=== PATIENT | female | born 1945 | race Caucasian/White ===

== ENCOUNTER → 2025-05-11 16:38 | Outpatient (REF) | payer MEDICARE, OTHER, SELFPAY | LOC: RAD 16:38 | PROVIDERS: ATTENDING PHYSICIAN Physician Assistant; FAMILY PHYSICIAN Family Medicine | DX: I72.9 Aneurysm of unspecified site (principal) | CPT/HCPCS: 70496; Q9967 ==

== ENCOUNTER 2025-06-23 14:09 | Inpatient (IN) | payer MEDICARE, OTHER, SELFPAY ==
[2025-06-23] VITALS (10 sets, daily range): BP systolic 116–164; BP diastolic 85–97; BMI 28.0; BMI 27.8
--- NOTE | 2025-06-23 11:10 | ED.CVA ---
History of Present Illness
General
Chief Complaint: CVA/TIA Symptoms
Time Seen by Provider: 06/23/25 11:01
Onset of Stroke Symptoms
Onset of symptoms known: Yes
Date of onset of symptoms: 06/19/25
History of Present Illness
History of Present Illness:
Patient is a 79-year-old woman with history of carotid aneurysm with stenting, hypertension, hyperlipidemia presenting to the emergency department with weakness. Per patient's and patient's son 4 days ago patient developed right-sided facial droop
right-sided weakness ataxia slurred speech and word finding difficulty. No prior history of stroke. No chest pain. No back pain. No numbness tingling. No falls.
Phy Exam
Physical Exam
Physical Exam:
GENERAL: in no acute distress
HEENT: normocephalic, extraocular movements intact, moist oral mucosa
NECK: normal inspection
RESPIRATORY: no respiratory distress, clear to auscultation bilaterally
CARDIOVASCULAR: regular rate and rhythm
ABDOMEN/: soft, non-distended, non-tender to palpation, no rebound or guarding
EXTREMITIES: non-tender, no edema/swelling
NEUROLOGIC: Right facial droop, aphasia dysarthria, right upper extremity drift, borheo-cq-koku on right side difficult secondary to weakness but yjzt-az-rnts on right side normal, normal sensation
SKIN: warm
Scores
NIH Stroke Score
Level of Consciousness: 0 - Alert
LOC Questions: 0-Answers both correctly
LOC Commands: 0-Performs both correctly
Best Horizontal Gaze: 0-Normal
Visual Spivey: 0=Normal, no visual loss
Facial Palsy: 1=Minor paralysis
Motor - Right Arm: 1=Drift < 10 seconds
Motor - Left Arm: 0=No drift 10 seconds
Motor - Right Le-No drift 5 seconds
Motor - Left Le-No drift 5 seconds
Limb Ataxia: 0-Absent
Sensation: 0-Normal
Best Language: 1-Mild aphasia
Dysarthria: 1-Mild slurring
Extinction and Inattention: 0-No abnormality
NIH Total Score:: 4
Course
Orders/Labs/Results
Orders:
Orders
06/23/25 11:10
Electrocardiogram (*1) Urgent
Reason for Study: TIA/Stroke
CT Head W/o Iv Contrast Urgent
Comment:
Reason For Exam: right sided weakness
EKG- Treatment ONCE
06/23/25 11:20
Basic Metabolic Panel Urgent
Complete Blood Count/With Diff Urgent
Abnormal Lab Results
06/23/25
11:20
MCHC 32.4 L g/dL
(33.0-37.0)
Monocytes % 10.3 H %
(1.7-9.3)
BUN 23 H mg/dl
(7-17)
Glucose 102 H mg/dl
(70-99)
06/23/25 11:20
06/23/25 11:20
Vital Signs
Initial and Last Documented VS:
Initial Vital Signs
Temp Pulse Resp BP Pulse Ox
98.9 F 79 16 162/91 99
06/23/25 10:18 06/23/25 10:18 06/23/25 10:18 06/23/25 10:18 06/23/25 10:18
Last Documented Vital Signs
Temp Pulse Resp BP Pulse Ox
98.9 F 79 16 162/91 99
06/23/25 10:18 06/23/25 10:18 06/23/25 10:18 06/23/25 10:18 06/23/25 11:12
MDM/Problems Addressed
Differential Diagnosis Includes:
Patient is a 79-year-old woman presenting to the emergency department with weakness facial droop slurred speech ataxia for the past 4 days. On arrival vitals are notable for hypertension and exam does show right-sided facial droop right arm
weakness, dysarthria mild dysphagia. She does have difficulty with gjmtst-hi-vjbw but likely secondary to weakness as uksc-zc-izla is normal. Concern for CVA. Will check blood work EKG and CT scan. Unfortunately patient is out of the window.
Patient will need admission for further evaluation.
*Pulse Oximetry
SaO2: 99
Oxygen Mode of Delivery: Room air
Patient hypoxic: no
*Critical Care Note
Total Time (30-74mins, 75-104mins- exclusive of procedures): Not Applicable
Update Note
Update Note:
Blood work is otherwise reassuring. CT scan per my interpretation with no obvious hemorrhage or large area of ischemia. Per the official read no acute abnormality. Patient will need admission. Discussed with hospitalist who accepted patient to
their service.
ED Attending Note
-
Portions of this chart may have been created with voice recognition software.� Occasional wrong word or��sound alike� substitutions may have occurred due to the inherent limitations of voice recognition software.
Discharge Plan
Departure
Patient Disposition: Admit
Date of Disposition: 06/23/25
Time of Disposition: 12:32
Presentation/result/management discussed w/ accepting MD/DO: Hospitalist
Discharge Problem:
Right sided weakness
Interventions
Interventions:
*Risk Screen - Suicide Last Done: 06/23/25 10:25
*General Assessment Last Done: 06/23/25 10:25
Discharge Date and Time
Print Language: MOZAMBICAN
[2025-06-23 11:27] LABS: Hematocrit 38.0 % (37.0-47.0); Hemoglobin 12.3 g/dL (12.0-16.0); Mean Corp Hgb Conc. 32.4 g/dL (33.0-37.0); Mean Corpuscular Volume 89.2 fL (81.0-99.0); Nucleated Red Blood Cells % 0 %; Platelet Count 281 10^3/uL (130-400); Red Cell Dist. Width 13.9 % (11.5-14.5)
[2025-06-23 11:54] LABS: Blood Urea Nitrogen 23 mg/dl (7-17); Calcium 9.5 mg/dl (8.4-10.2); Carbon Dioxide 27 mmol/L (22-30); Chloride 106 mmol/L (98-107); Glucose 102 mg/dl (70-99); Potassium 4.4 mmol/L (3.5-5.1); Sodium 139 mmol/L (135-145); eGFR > 60.00
--- NOTE | 2025-06-23 12:53 | HPS.HSE ---
Addendum entered and electronically signed by Marlen Nash MD, Resident 06/24/25 07:39:
correction
#Essential hypertension
Hypertensive at admission
Maintain goal normotension( symptoms started 4 days ago)
Continue home antihypertensives.
Original Note:
Family Physician
-
Family Physician:
Chief Complaint
-
.
History of Present Illness
79-year-old dzcie-fath-qyezfxfq female with history of carotid aneurysm left side s/p stenting, hypertension, hyperlipidemia presenting to the emergency department with weakness. Patient son at bedside. 4 days ago patient developed right-sided
facial droop, right-sided weakness, gait instability, slurred speech and word finding difficulty. No prior history of stroke. No syncopal episode, patient denies chest pain, SOB, back pain, headaches, lightheadedness/dizziness, bladder/bowel
disturbances, trauma/falls. Patient's son states that he recognized her speech to be very coarse, and she appeared mentally foggy.
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
ED course�labs unremarkable. EKG�sinus arrhythmia with PVCs.
CTA 05/11/2025� There is a fluid diverting stent within the left cavernous/paraclinoid ICA which appears patent. There is a adjacent medially thrombosed aneurysm sac measuring 2.1 cm. There is mild narrowing within the M1 segment of the left middle
cerebral artery.
CT head 06/23/2025�no acute intracranial abnormality. Redemonstration of stent within the LEFT cavernous ICA with adjacent saccular aneurysm which was thrombosed on the prior study and currently appears unchanged.
Medical History
Past Medical History
Past Medical History: Reports Other ( carotid aneurysm left side s/p stenting, hypertension, hyperlipidemia )
Past Surgical History: Reports Other (Pituitary tumor resection, carotid aneurysm s/p stent)
Social History
Tobacco: Non-smoker
Alcohol: None
Drug: None
Personal:
Living: With Family
Employment: Retired
Family History
Family History: Not pertinent
Allergies / Home Medications
Allergies reflects when Allergies were last updated in [facility].
Home Medications with original date entered in [facility]
Allergy/Medication List:
Allergies
Allergy/AdvReac Type Severity Reaction Status Date / Time
ampicillin Allergy Pharmacy Verified 06/23/25 10:25
to Review
Sulfa (Sulfonamide Allergy Pharmacy Verified 06/23/25 10:25
Antibiotics) to Review
Home Medications
amlodipine 5 mg tablet (Norvasc) 5 mg PO BID Blood Pressure 06/23/25
aspirin 325 mg tablet 325 mg PO DAILY 06/23/25
atorvastatin 10 mg tablet (Lipitor) 10 mg PO DAILY High Cholesterol 06/23/25
clopidogrel 75 mg tablet (Plavix) 75 mg PO DAILY Blood Clot Prevention/Tx 06/23/25
levothyroxine 25 mcg tablet (Synthroid) 25 mcg PO DAILY Thyroid 06/23/25
therapeutic multivitamin 1 tab PO DAILY Supplement 06/23/25
valsartan 80 mg tablet 80 mg PO BID Heart Disease/Condition 06/23/25
Review of Systems
-
A 12 point ROS was completed and negative except as noted: Yes
Physical Exam
Vital Signs
Vital Signs
Temp Pulse Resp BP Pulse Ox
98.9 F 79 16 162/91 99
06/23/25 10:18 06/23/25 10:18 06/23/25 10:18 06/23/25 10:18 06/23/25 11:12
Physical Exam
General: No Apparent Distress and Conversant
HEENT: NormoCephalic and Atraumatic
Respiratory: Clear
Cardiac: S1/S2 and Irregular Rhythm
GI: Soft, Non Tender, Non Distended and Normal Bowel Sounds
Skin: Warm and Dry
Neuro: Awake, Alert, Oriented, AO x 3, Slurred Speech, Facial Droop (Right-sided) and Other (Right lower extremity-strength 4/5, sensations, tone, reflexes intact. Right upper extremity-strength 5/5. Pronator drift +)
Psych: Calm
Laboratory Results
-
06/23/25 11:20
06/23/25 11:20
Impression/Plan
-
IMPRESSION:
79-year-old efumj-fstw-ivxrwnyt female with history of carotid aneurysm left side s/p stenting, hypertension, hyperlipidemia presenting to the emergency department with right facial droop, slurred speech, right lower extremity weakness.
PLAN:
#Right facial droop, right lower extremity weakness
Likely due to CVA�stroke
EKG�sinus arrhythmia with PVCs
CT head with no acute abnormalities
CTA�05/11/2024T Brain: No acute intracranial process. There are erosive changes within the clivus which extend beyond the espinosa of the aneurysm sac. There is likely opacification of the left sphenoid sinus. No underlying lesion is possible.
Recommend correlation with prior imaging if available. If none are available direct visualization or MRI should be considered for further evaluation.
There is a fluid diverting stent within the left cavernous/paraclinoid ICA which appears patent. There is a adjacent medially directed likely thrombosed aneurysm sac measuring 2.1 cm. There is mild narrowing within the M1 segment of the left middle
cerebral artery.
Neurology consulted
Will check CT angiogram
Check MRI brain
Continue aspirin, clopidogrel, statin
Will start high intensity statin, atorvastatin 80 mg (patient has been taking 10 mg atorvastatin)
Check HbA1c, lipid panel
Admit to telemetry
PT/OT evaluation
Speech evaluation
#Essential hypertension
Patient's blood pressure was elevated at admission
Maintain permissive hypertension
Will hold off on antihypertensives for today
#Hyperlipidemia
Start atorvastatin 80 mg
#Carotid artery aneurysm s/p stents
Continue aspirin, clopidogrel, atorvastatin
#Hypothyroidism
Continue levothyroxine
DVT prophylaxis�SCDs for now
Diet�pending speech/swallow eval
Full code
--- NOTE | 2025-06-23 14:21 | CON.NEURO4 ---
Addendum entered and electronically signed by Raghavendra Butler MD 06/23/25 16:56:
Studies reviewed.
I have personally examined the patient. I reviewed and agree with the SCRATCH BRUSHER's Note.
My addenda:
Awake, alert, interactive. No acute distress.
Speech intact.
Follows 2-step requests w/ mild difficulty. No tremor.
Extra-ocular movements grossly intact.
Facial movements full and symmetric. Hearing intact to normal conversational volume.
Normal UE movements bilaterally.
Neck: full ROM.
Chest: no dyspnea
Heart: no JVD
Ext: (-) Clubbing, (-) Cyanosis, (-) Edema
IMPRESSIONS/RECOMMENDATIONS:
Abrupt onset of right sided weakness
Beginning 4 days prior to presentation with waxing waning issue and left internal carotid clinoid artery stenting performed in March 2025
Differential diagnosis includes acute ischemic stroke, aneurysmal rupture despite use of stenting, seizures which is least likely based on the patient's current symptoms without significant cognitive change
Check CTA head and neck
Check efficacy of aspirin and clopidogrel by means of P2Y12 assay
Check MRI of brain
Provide medical educational materials
LDL greater than 70, therefore advance atorvastatin dosing from 10 mg to 40 mg to reduce risk of acute ischemic stroke
Rehabilitation evaluations and treatment
Goal of normotension
Goal of normoglycemia
Consider checking prolactin level
D/W patient / family / nursing
All questions answered.
Will continue to follow patient.
Original Note:
Documented by User: Eri Patel NP 06/23/25 15:43
Consultation - Neurology 4
-
CONSULTING PHYSICIAN: Raghavendra Butler MD
REFERRING PHYSICIAN: Hospitalists/Dr. Nash
DICTATED BY: LLOYD Simpson
DATE/TIME OF REQUEST: 06/23/25
DATE/TIME OF CONSULTATION: 06/23/25
Reason for Consultation: Right-sided weakness
History of Present Illness:
This is a 79-year-old female who has presented to the hospital with report of right-sided weakness. She initially presented to [facility] on Patient reports that four days ago on 06/19/25 her right side started to feel weak, right leg more so than her
right arm. Her family also notes that her speech was mildly slurred and she was having word finding difficulty. This seemed to improve, but didn't entirely resolve. Over the next several days, symptoms progressed. Two days ago on 06/21/25 she started
needing some assistance ambulating, this progressed to needed extensive help today to ambulate to the bathroom. On arrival in the ER, CT head was obtained and is negative for any acute abnormalities. Patient denies any headache, dizziness,
swallowing difficulty, and numbness. She is taking aspirin 325mg and clopidogrel 75mg s/p aneurysm stenting and denies missing any doses.
Past Medical History: L cavernous/paraclinoid ICA aneurysm s/p stent x3 by Dr. Mayogra at [facility] 03/2025, pituitary tumor s/p resection complicated by CSF leak/bacterial meningitis, low vision left eye, headaches, HTN, HLD, hypothyroidism
Surgical History: L cavernous/paraclinoid ICA aneurysm s/p stent x3, pituitary tumor resection 2008
Family History: Reviewed and noncontributory.
Social History: Denies tobacco, alcohol, and illicit drug use.
Allergies: Ampicillin, sulfa.
Home Medications: See below.
Review of Symptoms:
Patient denies any fever, headache, chest pain, shortness of breath, GI or symptoms.
�Per the HPI.�All systems are reviewed negative except above.
Physical Exam:
The patient is afebrile, abdomen is nondistended, breathing is unlabored, skin is warm and dry, no edema.
NIH Stroke Scale:
I performed the NIH stroke scale on the patient on 06/23/25 at 1420. The patient scored 3 points on the NIH stroke scale assessment, which were assigned as follows: See below.
Neurologic Examination:
The patient is awake, alert and oriented x 3. She is able to follow commands and answer questions appropriately. There is mild aphasia. No noticeable dysarthria currently. On cranial nerve assessment, pupils are 3 mm bilateral, round and reactive
to light and accommodation. Visual spivey are full. Extraocular movements are intact. Facial sensations are intact and bilaterally symmetrical, there is no facial asymmetry. Hearing is intact bilaterally to normal conversation volume. Tongue palate
and uvula are midline. Motor strengths are 5/5 left upper and lower extremities, adn 4+/5 right upper and lower extremities on medical research [place] scale. There is drift in the RUE and RLE. No involuntary movement noted. Deep tendon reflexes
are 2+ bilateral upper and lower extremities and Babinski is absent bilaterally. There was no extinction noted on double simultaneous stimulation. Coordination is intact by finger to nose bilaterally.
Lab Results: See below.
Neuro Imaging:
1. CT Head 06/23/25: No acute intracranial abnormality. Redemonstration of stent within the LEFT cavernous ICA with adjacent saccular aneurysm which was thrombosed on the prior study and currently appears unchanged.
Differentials for the patient's presentation include:
1. Right-sided weakness, aphasia, and dysarthria starting 4 days ago. Concern for a vascular issue with recently stented L ICA aneurysm possibly producing ischemic stroke symptoms.
2. History of pituitary tumor s/p resection 2008 complicated by CSF leak/bacterial meningitis.
Patient has the following risk factors for their symptoms: L ICA aneurysm s/p 3 stents 03/2025
IV Tenecteplase/IAT candidacy: Not a candidate due to symptom onset 4 days ago.
Recommendations:
-STAT CTA head/neck, may need urgent consultation with [facility] if there is any concern that there is a malfunction of L ICA aneurysm stents.
-NIHSS and neurological checks per unit guidelines.
-Continue aspirin 325mg and clopidogrel 75mg daily.
-MRI brain noncontrast eventually.
-Goal normotension as symptom onset was 4 days ago.
-Provide patient/family with a stroke education packet.
-LDL goal <70. Lipid panel is pending.
-Goal normoglycemia, hbA1c is pending.
-PT/OT/ST evaluations.
-DVT prophylaxis.
Discussed patient care with: Dr. Butler, the patient, patient's son
Vital Signs and Labs
-
Vital Signs and Labs:
Vital Signs
Temp Pulse Resp BP Pulse Ox
98.9 F 78 19 131/93 96
06/23/25 10:18 06/23/25 13:15 06/23/25 13:15 06/23/25 13:00 06/23/25 13:15
Lab Results
06/23/25 11:20
06/23/25 11:20
Sodium 139 mmol/L (135-145) 06/23/25 11:20
Potassium 4.4 mmol/L (3.5-5.1) 06/23/25 11:20
BUN 23 mg/dl (7-17) H 06/23/25 11:20
Glucose 102 mg/dl (70-99) H 06/23/25 11:20
Calcium 9.5 mg/dl (8.4-10.2) 06/23/25 11:20
Medications
-
Active Medications
Generic Name Dose Route Start Last Admin
Trade Name Freq PRN Reason Stop Dose Admin
Sodium Chloride 1,000 mls @ 80 mls/hr 06/23/25 14:12
Nss IV 06/24/25 02:41
DIRECTED ONE
Home Medications
�Medication �Instructions �Recorded
amlodipine 5 mg tablet (Norvasc) 5 mg PO BID Blood Pressure 06/23/25
aspirin 325 mg tablet 325 mg PO DAILY 06/23/25
atorvastatin 10 mg tablet (Lipitor) 10 mg PO DAILY High Cholesterol 06/23/25
clopidogrel 75 mg tablet (Plavix) 75 mg PO DAILY Blood Clot 06/23/25
Prevention/Tx
levothyroxine 25 mcg tablet 25 mcg PO DAILY Thyroid 06/23/25
(Synthroid)
therapeutic multivitamin 1 tab PO DAILY Supplement 06/23/25
valsartan 80 mg tablet 80 mg PO BID Heart 06/23/25
Disease/Condition
NIH Stroke Score
Subsequent NIH Scale
Date of Subsequent NIH Scale: 06/23/25
Time of Subsequent NIH Scale: 14:20
NIH Stroke Score
Level of Consciousness: 0 - Alert
LOC Questions: 0-Answers both correctly
LOC Commands: 0-Performs both correctly
Best Horizontal Gaze: 0-Normal
Visual Spivey: 0=Normal, no visual loss
Facial Palsy: 0=Normal, symmetrical
Motor - Right Arm: 1=Drift < 10 seconds
Motor - Left Arm: 0=No drift 10 seconds
Motor - Right Le-Drift < 5 seconds
Motor - Left Le-No drift 5 seconds
Limb Ataxia: 0-Absent
Sensation: 0-Normal
Best Language: 1-Mild aphasia
Dysarthria: 0-Normal
Extinction and Inattention: 0-No abnormality
NIH Total Score:: 3
Modified [place] (mRS) Score
Modified [place] Scale (mRS): Moderately severe disability. Unable to attend to bodily needs/walk.
Score: 4
Alteplase Contraindication
Inclusion and Exclusion criteria reviewed: Yes
Reasons for NON-Tx with Thrombolytics ABSOLUTE Exclusions: Greater than 4.5 hrs from onset of sxs

Documented by User: Raghavendra Butler MD 06/23/25 16:49
NIH Stroke Score
NIH Stroke Score
NIH Total Score:: 3
Modified [place] (mRS) Score
Score: 4
--- NOTE | 2025-06-23 15:02 | W.PN.UPDATE ---
Update Note
Progress Note Update
Discussed plan with resident.
HPI: 79-year-old female, with past medical history of carotid aneurysm status post stents x 3 in February 2025, hypertension, hyperlipidemia, who presented with right arm weakness, and likely had dysarthria/expressive aphasia.
Symptoms started about 4 days prior to admission.
A/P:
# Mild Right facial droop, right arm weakness, imbalance, possible dysarthria/ mild expressive aphasia
Admission CT head unrevealing.
Check MRI brain, CT head and neck angio
Check LDL and A1c as part of stroke workup
Neuro consult
Speech eval
PT OT eval
# Carotid aneurysm s/p stents
Continue aspirin, clopidogrel, atorvastatin
# Essential hypertension
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
# Hyperlipidemia
SPLIT AND [employer]UM RO[employer] SUPERVISOR atorvastatin increased from 10 to 80 mg by neuro
# Hypothyroidism
Continue levothyroxine
DVT prophylaxis� Lovenox SQ
Full code
[2025-06-23 16:25] LABS: HDL Cholesterol 86 mg/dl; LDL Cholesterol, Calculated 95 mg/dl; Very Low Density Lipoprotein 12 mg/dl (0-30)
[2025-06-23] MEDS: NSS 1000 IV (17:44)
[2025-06-23] MEDS: LIPITOR 80 MG PO (17:47)
[2025-06-23] MEDS: LOVENOX 40 MG SC (17:47)
[2025-06-23 19:15] LABS: Ferritin 38.6 ng/ml (11.1-264.0)
[2025-06-23 19:47] LABS: Folate > 20.0 ng/ml (2.76-20); Vitamin B12 685 pg/ml (239-931)
[2025-06-23] MEDS: NORVASC 5 MG PO (22:19)
[2025-06-23] MEDS: DIOVAN 80 MG PO (22:20)
[2025-06-24] VITALS (9 sets, daily range): BP systolic 130–170; BP diastolic 67–100; PULSE 85–86; O2SAT 95–96
[2025-06-24 01:09] LABS: C-Reactive Protein < 5.00 mg/L (0.0-10.00)
[2025-06-24] MEDS: SYNTHROID 25 MCG PO (06:29)
[2025-06-24 08:15] LABS: Hematocrit 36.0 % (37.0-47.0); Hemoglobin 11.8 g/dL (12.0-16.0); Mean Corp Hgb Conc. 32.8 g/dL (33.0-37.0); Mean Corpuscular Volume 88.0 fL (81.0-99.0); Nucleated Red Blood Cells % 0 %; Platelet Count 291 10^3/uL (130-400); Red Cell Dist. Width 13.9 % (11.5-14.5)
[2025-06-24 08:31] LABS: ALT (SGPT) 24 U/L (0-35); AST (SGOT) 27 U/L (14-36); Albumin 3.6 g/dl (3.5-5.0); Alkaline Phosphatase 68 U/L (38-126); Blood Urea Nitrogen 20 mg/dl (7-17); Calcium 9.1 mg/dl (8.4-10.2); Carbon Dioxide 24 mmol/L (22-30); Chloride 108 mmol/L (98-107); Estimated Creatinine Clearance 52 ml/min; Glucose 101 mg/dl (70-99); HDL Cholesterol 69 mg/dl; LDL Cholesterol, Calculated 90 mg/dl; Potassium 4.2 mmol/L (3.5-5.1); Sodium 138 mmol/L (135-145); Total Protein 5.8 g/dl (6.3-8.2); Very Low Density Lipoprotein 19 mg/dl (0-30); eGFR > 60.00
[2025-06-24 08:32] LABS: Vitamin D, 25-OH*** 49.3 ng/mL (30-80)
[2025-06-24] MEDS: ASPIRIN 325 MG PO (08:34)
[2025-06-24] MEDS: DIOVAN 80 MG PO ×2 (08:34→22:06)
[2025-06-24] MEDS: PLAVIX 75 MG PO (08:34)
[2025-06-24] MEDS: NORVASC 5 MG PO ×2 (08:34→22:09)
[2025-06-24] MEDS: THERAGRAN 1 TABLET PO (08:34)
[2025-06-24 09:22] LABS: Folate > 20.0 ng/ml (2.76-20); Vitamin B12 730 pg/ml (239-931)
[2025-06-24 09:39] LABS: Glycohemoglobin (HgbA1c) 6.3 % (4.0-5.9)
--- NOTE | 2025-06-24 09:53 | W.PN.NEURO.1 ---
Today's Communication / Plan
-
plan communicated to primary team via TT
Neuro Assessment/Plan
Assessment
# concern for left sided stroke
mechanism unclear at this time, embolic from stent possible, but has not missed dose of plavix and aspirin. consider change to brillinta from plavix if possible if stroke is confirmed. Carbioembolic is possible but EKG didn't show afib. less likely
atheroembolic due to little atherosclerosis.
Plan
- blood pressure goal: Normotension due to LKN 4-5 days ago
- MRI brain w/o contrast
- q 4 hour neuro checks
- continue home aspirin 325mg daily + plavix 75mg daily
- increase atorvastatin to 80mg qhs
- LDL and HgA1c done
- TTE
- other stroke labs: NT-proBNP, d-dimer, ESR, troponin
- consult PT/OT and PM&R if appropriate
Subjective/Objective
Subjective Data
Date of Service: June 24, 2025
Reports improvement in her right sided weakness but not at baseline.
Objective Data
Vital Signs
Temp Pulse Resp BP Pulse Ox
36.5 C 74 17 137/92 97
06/24/25 07:19 06/24/25 07:19 06/24/25 07:19 06/24/25 07:19 06/24/25 07:19
Lab Results
06/24/25 07:08
06/24/25 07:08
Sodium 138 mmol/L (135-145) 06/24/25 07:08
Potassium 4.2 mmol/L (3.5-5.1) 06/24/25 07:08
BUN 20 mg/dl (7-17) H 06/24/25 07:08
Glucose 101 mg/dl (70-99) H 06/24/25 07:08
Calcium 9.1 mg/dl (8.4-10.2) 06/24/25 07:08
LDL Cholesterol, Calc 90 mg/dl 06/24/25 07:08
Vitamin B12 730 pg/ml (426-931) 06/24/25 07:08
Patient Allergies
ampicillin Allergy (Verified 06/23/25 16:58)
Unknown
Sulfa (Sulfonamide Antibiotics) Allergy (Verified 06/23/25 16:58)
Unknown
LDL Level: Statin dose adjusted
Review of Systems
-
History Source: Patient
All other systems: Reviewed and negative
Physical Exam
-
General: Well Developed, Well Nourished and No Apparent Distress
Eyes: Unremarkable
HEENT: Normocephalic and Atraumatic
Skin: Unremarkable
Extremities: No Clubbing
Psych: Unremarkable
Extended Neurological Exam
Mood & Affect: Mood Unremarkable
Attention Span & Concentration: Awake, Alert and Interactive
Memory: Able to Recall (2/3 on delayed recall)
Tremor: Hand Tremor Absent
Involuntary Movement: None
Speech: Quality Unremarkable, Quantity Unremarkable and Rate of Production Unremarkable
Cranial Nerve II: Left Eye: Pupillary Reactivity Unremarkable
Cranial Nerve II: Right Eye: Pupillary Reactivity Unremarkable
Cranial Nerves III, IV, : Extraocular Movement: Extraocular Movement Full in all Directions
Cranial Nerve V: Facial Sensation: Intact to Light Touch
Cranial Nerve VII: Facial Symmetry: Reduced (mild Right nasolabial fold flattening)
Cranial Nerve VIII: Hearing: Unremarkable Hearing to Normal Conversational Volume
Cranial Nerves IX, X: Palate Movement: Palate Elevation Symmetric
Cranial Nerve XI: Shoulder Shrug: Unremarkable
Cranial Nerve XII: Tongue Protusion: Midline
Muscle Strength, Overall: Reduced on Right (4/5 on RUE and RLE)
Muscle Bulk & Tone: Bulk Unremarkable and Tone Unremarkable
Pronator Drift: Drift in Right Upper Extremity and Drift in Right Lower Extremity
Deep Tendon Reflexes: Unremarkable Throughout
Touch Sensation: Unremarkable
Coordination: Ilvtmg-kbqc-ommxey Testing Unremarkable
Gait & Station: Unable to Assess (R sided weakness)
Data Reviewed
-
CT-A: Image Reviewed (No LVO, no acute hemorrhage, stent in left ICA patent, )
--- NOTE | 2025-06-24 10:11 | PTOTSP ---
Speech Therapy Evaluation
Pt is at an increased risk of aspiration given concerns for TIA/CVA. With PO intake, pt demo adequate oral acceptance, mastication, ap transfer, and oral clearance. No residue in right buccal cavity, despite mild right sided weakness. No overt s/sx
of aspiration. Cannot rule out silent aspiration at bedside. Pt afebrile, on room air, and WBC WFL.
Recommend:
1. IDDSI 7 Regular solids, IDDSI 0 thin liquids
2. Medication as best tolerated
3. Standard aspiration precautions
4. SIDEROGRAPHER to follow for speech-language assessment (if warranted) and to monitor diet tolerance
--- NOTE | 2025-06-24 13:04 | CM ---
Patient seen at bedside with son Dominik & grand-daughter Silvia
IA completed
MRI today
CM consult stroke/tia/dc planning completed
Patient lives with 2 story home, in in-law suite, 2 DRU, flight stairs for bedroom, full handicapped bath on 1st floor
PLOF: independent, no assistive device used
DME: Walker, commode, wheelchair
PT/OT rec [facility]UTE [facility] acute rehab entered in [facility]
tt hospitalist for PM&R consult
no pre-auth
PCP: Judie Branch
Pharmacy: [address]
PLAN: Acute Rehab, pending bed availability, when stable
--- NOTE | 2025-06-24 13:59 | W.PN.HOSP.TC ---
Today's Communication/Plan
-
MRI pending
Goal normotension
Assessment / Plan
Assessment / Plan
79 F with carotid aneurysm s/p stent x 3 in February 2025, HTN, HLD, p/w right arm weakness, dysarthria/expressive aphasia.
Suspected acute stroke
Symptoms started 4 days prior to arrival
CT head no acute intracranial abnormality
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
MRI brain�pending
LDL 90�continue statin
A1c 6.3%�SSI/Accu-Cheks for now
ESR 3, TSH 2.9. D-dimer and troponin are pending
Echo pending
Neuro consulted appreciate recs
Speech eval�cleared for diet
PT OT recommend acute rehab. PM&R consult placed
Carotid aneurysm s/p stents
Continue aspirin, clopidogrel, atorvastatin
HTN
Goal normotension, patient already 4 days out from symptoms
Continue amlodipine and valsartan, adjust as needed for BP control
HLD
atorvastatin increased from 10 to 80 mg by neuro
Hypothyroidism
Continue levothyroxine
DVT prophylaxis� Lovenox SQ
Full code
Anticipated Discharge: 24 - 48 hours
Subjective/Interval History
-
Date of Service: June 24, 2025
Patient states her right arm weakness is about the same, but feels her speech is mostly improved. She notes blurred vision in both eyes for several weeks, previously only had in the left eye when she had was having issues with her aneurysm. Denies
any other issues, no difficulty swallowing, no CP/SOB/N/V/abdominal pain/F/C.
Son at bedside and family on the phone on speaker
Objective Data
-
Labs:
Laboratory Results
06/24/25
07:08
WBC 5.7
Hgb 11.8 L
Hct 36.0 L
Plt Count 291
Sodium 138
Potassium 4.2
Chloride 108 H
Carbon Dioxide 24
BUN 20 H
Creatinine 0.9
Glucose 101 H
Calcium 9.1
Total Bilirubin 0.4
AST 27
ALT 24
Alkaline Phosphatase 68
Vital Signs:
Vital Signs
Temp Pulse Resp BP Pulse Ox
97.8 F 85 18 160/97 98
06/24/25 11:06 06/24/25 11:06 06/24/25 11:06 06/24/25 11:06 06/24/25 11:06
Review of Systems
-
All other systems: Reviewed and negative
Physical Exam
-
General: No Apparent Distress
HEENT: Moist Mucous Membranes, Anicteric and PERRLA
Respiratory: Clear to Auscultation; Negative Wheezes, Rales or Rhonchi
Cardiac: Regular Rhythm and S1/S2; Negative Murmur, Rub or Gallop
GI: Soft, Nontender, Nondistended and Normal Bowel Sounds
Musculoskeletal: No Edema
Skin: Warm and Dry; Negative Rash, Ulcers or Lesions
Neuro: Awake, AO x 3, Central Nerve's Intact (EOMI) and Other (Strength RUE 4-5/5, handgrip 5/5, RLE 4/5, LLE/LUE 5/5, no pronator drift, right [id number] dysmetria); Negative Slurred Speech or Facial Droop
Hematologic / Lymphatic: No Lymphadenopathy
Psych: Calm
Data Reviewed
-
CT Scan: Report Reviewed by me, Discussed with Patient and Discussed with Family
Labs: Labs Reviewed by me, Discussed with Patient and Discussed with Family
[2025-06-24] MEDS: LOVENOX 40 MG SC (17:00)
[2025-06-24] MEDS: LIPITOR 80 MG PO (17:00)
[2025-06-25 03:35] VITALS: BP 147/85
[2025-06-25] MEDS: SYNTHROID 25 MCG PO (05:57)
[2025-06-25 07:28] VITALS: BP 160/97
--- NOTE | 2025-06-25 07:59 | W.PN.NEURO.1 ---
Today's Communication / Plan
-
plan communicated to primary team via TT
Neuro Assessment/Plan
Assessment
#Left temporal lobe stroke
#Left thalamic stroke
mechanism still unclear at this time, embolic from stent possible, but has not missed dose of plavix and aspirin. Discussing case with Stroke team at [facility] to determine if DSA would be helpful in further evaluation of stroke mechanism or stent
function
Plan
- blood pressure goal: Normotension due to LKN 4-5 days ago
- q 4 hour neuro checks
- continue home aspirin 325mg daily + plavix 75mg daily
- increase atorvastatin to 80mg qhs
- LDL and HgA1c and ESR done ddimer pending
- TTE
- consult PT/OT and PM&R if appropriate
Subjective/Objective
Subjective Data
Date of Service: June 25, 2025
No acute events overnight. Feels better today than yesterday. I discussed with her that I'm discussing her case with stroke team at [facility] to determine if further evaluation of stent is needed.
Objective Data
Vital Signs
Temp Pulse Resp BP Pulse Ox
36.6 C 64 18 147/85 99
06/25/25 03:35 06/25/25 03:35 06/25/25 03:35 06/25/25 03:35 06/25/25 03:35
Sodium 138 mmol/L (135-145) 06/24/25 07:08
Potassium 4.2 mmol/L (3.5-5.1) 06/24/25 07:08
BUN 20 mg/dl (7-17) H 06/24/25 07:08
Glucose 101 mg/dl (70-99) H 06/24/25 07:08
Calcium 9.1 mg/dl (8.4-10.2) 06/24/25 07:08
LDL Cholesterol, Calc 90 mg/dl 06/24/25 07:08
Vitamin B12 730 pg/ml (043-931) 06/24/25 07:08
Patient Allergies
ampicillin Allergy (Verified 06/23/25 16:58)
Unknown
Sulfa (Sulfonamide Antibiotics) Allergy (Verified 06/23/25 16:58)
Unknown
Physical Exam
-
General: Well Developed, Well Nourished and No Apparent Distress
HEENT: Normocephalic, Atraumatic and Anicteric
Skin: Unremarkable
Extremities: No Clubbing
Psych: Unremarkable
Extended Neurological Exam
Mood & Affect: Mood Unremarkable and Affect Unremarkable
Attention Span & Concentration: Awake, Alert and Interactive
Memory: Unremarkable
Tremor: Hand Tremor Absent
Involuntary Movement: None
Speech: Quality Unremarkable, Quantity Unremarkable and Rate of Production Unremarkable
Cranial Nerve II: Left Eye: Pupillary Reactivity Unremarkable and Visual Spivey Grossly Intact
Cranial Nerve II: Right Eye: Pupillary Reactivity Unremarkable and Visual Spivey Grossly Intact
Cranial Nerves III, IV, : Extraocular Movement: Extraocular Movement Full in all Directions and No Ptosis
Cranial Nerve VII: Facial Symmetry: Reduced (R Nasolabial fold flattening)
Cranial Nerve VIII: Hearing: Unremarkable Hearing to Normal Conversational Volume
Cranial Nerves IX, X: Palate Movement: Palate Elevation Symmetric
Cranial Nerve XI: Shoulder Shrug: Unremarkable
Cranial Nerve XII: Tongue Protusion: Midline
Muscle Strength, Overall: Reduced on Right (4/5 on R arm extention and R hip flexion)
Muscle Bulk & Tone: Bulk Unremarkable and Tone Unremarkable
Data Reviewed
-
MRI Head: Image Reviewed (actue stroke nonhemorrhagic in left temporal lobe and left thalamus)
[2025-06-25] MEDS: THERAGRAN 1 TABLET PO (08:20)
[2025-06-25] MEDS: PLAVIX 75 MG PO (08:20)
[2025-06-25] MEDS: ASPIRIN 325 MG PO (08:20)
[2025-06-25] MEDS: NORVASC 5 MG PO (08:21)
[2025-06-25] MEDS: DIOVAN 80 MG PO (08:21)
[2025-06-25 09:08] LABS: Glucose - Point of Care 123 mg/dl (70-99)
--- NOTE | 2025-06-25 09:28 | W.PN.UPDATE ---
Update Note
Progress Note Update
I discussed Ms. Sandoval's case with the stroke team at [place] via the [facility] who recommended that I speak to NSG because my question is regarding the stent placed by [facility]. I spoke to NSG who recommended transfer for DSA to evaluate the
stent. I told Ms. Sandoval, called her to tell him, and told the primary team. Transfer form filled out. Accepting attending is Dr. Kyle.
[2025-06-25 10:21] LABS: D-Dimer 0.55 ug/mlFEU (0.00-0.50)
--- NOTE | 2025-06-25 10:27 | CM ---
Patient met at bedside with and son
Patient to be transferred to [place] at 12:30pm today
IMM explained & signed. In chart
PLAN: Transfer to [place] today at 12:30pm today
ambulance forms on chart
[2025-06-25 10:28] LABS: Troponin I < 0.012 ng/ml
[2025-06-25 10:30] LABS: Blood Urea Nitrogen 26 mg/dl (7-17); Calcium 9.8 mg/dl (8.4-10.2); Carbon Dioxide 28 mmol/L (22-30); Chloride 105 mmol/L (98-107); Estimated Creatinine Clearance 47 ml/min; Glucose 109 mg/dl (70-99); Potassium 4.4 mmol/L (3.5-5.1); Sodium 138 mmol/L (135-145); eGFR 57.66
[2025-06-25 10:31] LABS: Hematocrit 39.5 % (37.0-47.0); Hemoglobin 12.7 g/dL (12.0-16.0); Mean Corp Hgb Conc. 32.2 g/dL (33.0-37.0); Mean Corpuscular Volume 90.8 fL (81.0-99.0); Platelet Count 289 10^3/uL (130-400); Red Cell Dist. Width 13.8 % (11.5-14.5)
--- NOTE | 2025-06-25 10:58 | W.DCSUMMARY ---
Discharge Summary
Discharge Data
Date of Admission: 06/23/25
Date of Discharge: 06/25/25
Total time spent discharging patient (in min): 35
-
Pending Results: Yes (Echo-ordered but not yet performed)
Hospital Course
Attending physician on day of discharge:
Carly Soriano MD
Discharge diagnosis:
Left temporal lobe stroke
Left thalamic stroke
Secondary diagnoses:
Carotid aneurysm s/p stents
HTN
HLD
Hypothyroidism
Consultations:
Neurology Dr. Stein
Procedures:
none
Hospital course:
79 F with carotid aneurysm s/p stent x 3 in February 2025, HTN, HLD, p/w right arm weakness, dysarthria/expressive aphasia, which started 4 to 5 days prior to admission. She also noted right eye blurriness (has had left eye blurriness previously). She
also noted right leg weakness. She was admitted for stroke workup. CTH, CTA H/N, MRI brain performed, see below, confirming stroke. Neurologist discussed with neurosurgery team at [facility], plan for transfer for further workup of stroke mechanism
including cerebral angiogram, given concern about her stents. Other stroke workup included EKG which showed sinus rhythm, telemonitoring which did not show arrhythmia, ESR 3, TSH 2.9, A1c 6.3%, D-dimer 0.55, troponin <0.012. Echo was ordered but
not yet performed. Her BP was elevated and she was resumed on her home medication, and chlorthalidone was added for improved BP control, atorvastatin was increased to 80 mg for better LDL control, SSI/Accu-Cheks were started for blood sugar control.
ST cleared for diet, PT/OT recommended acute rehab on discharge.
Diagnostic Findings:
MRI brain: Moderate-sized nonhemorrhagic acute/subacute infarction within the posteromedial superior left temporal lobe extending to the lateral left thalamus.
CTA h/n: IMPRESSION:
No acute intracranial hemorrhage. Left cavernous ICA stent. 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
Saccular aneurysm is thrombosed. At the anterior inferior margin of the medially situated saccular cavernous ICA aneurysm, there is a 2.5 mm focus of enhancement which was not present on the prior examination in April. Exact etiology uncertain.
Attenuation of contrast material within the lumen of the left cavernous ICA stent at the anterior curve. The possibility of neointimal hyperplasia resulting in stent stenosis cannot be entirely excluded. However, no occlusion.
No other [place] region aneurysm or hemodynamically significant stenosis.
No aneurysm, significant stenosis, thrombus, or occlusion of the cerebral arteries.
CTH: No acute intracranial abnormality. Redemonstration of stent within the LEFT cavernous ICA with adjacent saccular aneurysm which was thrombosed on the prior study and currently appears unchanged.
Physical exam on discharge:
Gen: NAD
HEENT: PERRLA, EOMI, MMM, neck supple
Cards: RRR, no M/G/R
Resp: Lungs CTAB, no W/R/R
GI: soft, NT/ND/NABS
MSK: No edema
Skin: warm and dry, no rash, ulcer or lesions
Heme: No LAD
Psych: Calm
Neuro: AAOx3, R facial droop, Strength RUE 4-5/5, handgrip 5/5, RLE 3/5, LLE/LUE 5/5, no pronator drift, right [id number] dysmetria
Discharge disposition:
Transfer to [facility]
Discharge Plan
-
Patient Disposition: Acute Care Hospital
Discharge Orders:
Discharge Patient (As Directed); Ordered 06/25/25
Ordered By: Carly Soriano
Discharge Date and Time
Print Language: [id number]
[2025-06-25 12:02] VITALS: BP 134/85
[2025-06-25 12:11] LABS: Glucose - Point of Care 115 mg/dl (70-99)
== END 2025-06-25 13:00 | disposition short-term general hospital (02) | DRG 65 ==
LOC: 3 WEST ACU 14:09
PROVIDERS: Student in an Organized Health Care Education/Training Program; ADMITTING PHYSICIAN Internal Medicine; ATTENDING PHYSICIAN Internal Medicine; CONSULT PHYSICIAN Psychiatry & Neurology Neurology; EMERGENCY PHYSICIAN Student in an Organized Health Care Education/Training Program; FAMILY PHYSICIAN Family Medicine
DX: I63.9 Cerebral infarction, unspecified (principal); G81.91 Hemiplegia, unspecified affecting right dominant side; R29.810 Facial weakness; R47.01 Aphasia; R47.1 Dysarthria and anarthria; R27.0 Ataxia, unspecified; I10 Essential (primary) hypertension; E03.9 Hypothyroidism, unspecified; E78.5 Hyperlipidemia, unspecified; I49.3 Ventricular premature depolarization; Z86.61 Personal history of infections of the central nervous system; Z88.0 Allergy status to penicillin; Z88.2 Allergy status to sulfonamides; Z79.82 Long term (current) use of aspirin; Z79.02 Long term (current) use of antithrombotics/antiplatelets; Z79.890 Hormone replacement therapy; H53.8 Other visual disturbances
CPT/HCPCS: 70450; 70496; 70498; 70551; 80048; 80053; 80061; 82306; 82607; 82728; 82746; 82962; 83036; 84443; 84484; 85025; 85027; 85379; 85652; 86140; 92610; 93005; 97163; 97167; 97535; 99285; Q9967